=== PATIENT | female | born 1955 | race Caucasian/White ===

== ENCOUNTER 2017-02-08 10:54 | Inpatient (IN) ==
[2017-02-08] MEDS ORDERED: *HR* Morphine 2 MG/ML SYRINGE IVP ONE (11:28)
[2017-02-08 11:42] LABS: Basophils # 0.1 K/mcL (0.0-0.2); Basophils % 0.4 %; Eosinophils # 0.2 K/mcL (0.0-0.6); Hematocrit 45.1 % (35.3-44.9); Hemoglobin 14.8 g/dL (11.5-15.4); Immature Granulocytes % 0.3 % (0-4); Lymphocytes # 1.4 K/mcL (0.6-4.6); Lymphocytes % 9.4 %; Mean Corpuscular HGB Conc 32.8 g/dL (31.6-35.5); Mean Corpuscular Hemoglobin 29.9 pg (28.0-33.3); Mean Corpuscular Volume 91.1 fL (83.0-100.0); Mean Platelet Volume 10.8 fL (9.4-12.4); Monocytes # 0.5 K/mcL (0.0-1.3); Monocytes % 3.5 %; Neutrophils # 13.1 K/mcL (1.6-8.9); Platelet Count 235 K/mcL (140-400); Red Blood Count 4.95 M/mcL (3.82-4.97); Red Cell Distribution Width 13.1 % (11.5-14.5); Segmented Neutrophils % 85.4 %
--- NOTE | 2017-02-08 11:42 | Emergency Department Note ---
Disposition Clinical Impression: Hematuria Qualifiers: Hematuria type: unspecified type Qualified Code(s): R31.9 - Hematuria, unspecified Disposition: Admitted As Inpatient Condition: Fair Time of Disposition: 13:26 Female Urogenital HPI - General Chief complaint: ED Urogenital-Female Stated complaint: r flank pain , hematuria Time Seen by Provider: 02/08/17 10:58 Source: patient, EMS Limitations: no limitations Nursing Notes Reviewed: Yes Vital Signs Reviewed: Yes - History of Present Illness HPI Narrative: Ms. Higgins is a 61 y/o F with no significant past medical history who presents with right flank pain and hematuria. The patient states that the pain was a sudden onset that started at around 9 AM. Patient describes it as a constant pain with no radiation that felt like someone punched her on her right side. She never had this pain before. She states that nothing makes it worse but urinating improve the pain. Since the pain, she had 3 episodes of hematuria and admit feeling weak and diaphoretic. She also states she has lower abdominal pain that is intermittent, dull, and crampy that started in the ED. She states that it does not radiate and nothing makes it better or worse. SHe denies any fever, headaches, chest pain, shortness of breath, occupation, diarrhea, numbness and tingling, any recent trauma. - Related Data Home Medications Medication Instructions Recorded Confirmed No Known Home Drugs 02/08/17 02/08/17 Allergies Allergy/AdvReac Type Severity Reaction Status Date / Time Penicillins Allergy Intermediate Rash Verified 02/08/17 11:53 sulfacetamide Allergy Intermediate Rash Verified 02/08/17 11:53 [From Sulfamide] All systems ED: reviewed and negative except as stated. Review of Systems: As Per HPI Constitutional: Denies: fever Cardiovascular: Denies: chest pain Respiratory: Denies: dyspnea Genitourinary: Reports: hematuria Musculoskeletal: Reports: back pain Past Medical History - Past Medical History Attestation: Yes The following information was validated with the patient. Source: patient Medical history: Reports: no medical history Psychiatric history: Reports: no psych history Para: 4 - Social History Smoking Status: Never smoker Smokeless Tobacco Status: No Alcohol use: Reports: none Drug use: Reports: none Physical Exam - General Limitations: no limitations General appearance: alert, in no apparent distress - Head Head exam: atraumatic, normocephalic, normal inspection - Eye Eye exam: Present: normal appearance, EOMI - Expanded Eye Exam Pupils: Bilateral: reactive - ENT ENT exam: normal exam, normal oropharynx, mucous membranes moist - Chest Chest inspection: Present: normal inspection, symmetric chest wall rise - Respiratory Respiratory exam: Present: normal lung sounds bilaterally. Absent: respiratory distress, wheezes - Cardiovascular Cardiovascular exam: Present: regular rate, normal rhythm, normal heart sounds. Absent: rubs, gallop, clicks - Abdominal Exam Abdominal exam: Present: soft, tenderness (tenderness to palpation below the umbilicus). Absent: distention, guarding, rebound, rigidity, trauma Abdominal tenderness: Present: mild - Extremities Exam Extremities exam: Present: normal inspection, full ROM. Absent: tenderness, pedal edema - Expanded Upper Extremity Exam Shoulder exam: Present: normal inspection, full ROM Vascular exam: Normal: capillary refill, radial pulse - Expanded Lower Extremity Exam Neurovascular/Tendon exam: Absent: pulse deficit, motor deficit, sensory deficit , tendon deficit - Back Exam Back exam: Present: normal inspection, CVA tenderness (R). Absent: tenderness, CVA tenderness (L), paraspinal tenderness, vertebral tenderness - Neurological Exam Neurological exam: Present: alert, oriented X3 - Expanded Neurological Exam Patient oriented to: Present: person, place, time Coma Scale Eye Opening: Spontaneous Coma Scale Motor Response: Obeys Commands Coma Scale Verbal Response: Oriented Coma Scale Total: 15 - Psychiatric Psychiatric exam: Present: normal affect, normal mood - Skin Skin exam: Present: warm, dry, intact, normal color Course Course Narrative: Patient is so uncomfortable. Does not want any further pain medication. We will perform CT prior to her being sent to the floor. Urology to see on the floor and place Campbell at that time. - Consultations Consultation #1: D/W Dr Franklin. Agrees with admission. Will order CT urogram and he will place campbell on the floor. Time: 13:24 Consultation #2: Dr Tesfaye accepts and requests CT to be ordered in department. Time: 13:35 Vital Signs Temperature 97.1 F L 02/08/17 10:58 Pulse Rate 101 02/08/17 10:58 Respiratory Rate 20 02/08/17 10:58 Blood Pressure 148/90 02/08/17 10:58 O2 Sat by Pulse Oximetry 98 02/08/17 10:58 Temperature 97.1 F L 02/08/17 10:58 Pulse Rate 93 02/08/17 13:47 Respiratory Rate 14 02/08/17 14:41 Blood Pressure 114/70 02/08/17 14:41 O2 Sat by Pulse Oximetry 97 02/08/17 13:47 Oxygen Delivery Oxygen Delivery Room Air Urogenital-Female - MDM Narrative Medical decision making narrative: Patient presents with right flank pain and hematuria and no history of kidney stones. Labs and UA is pending. Patient is currently comfortable and morphine is given for pain at this time. 11:49 12:23- UA reviewed and showed evidence of large amount of blood - Medical Records Medical records reviewed: Yes I reviewed the patient's medical records. - Lab Data Result diagrams: 02/08/17 11:35 02/08/17 11:35 Lab Results 02/08/17 02/08/17 02/08/17 Range/Units 11:35 11:35 11:47 WBC 15.3 H (4.3-11.1) K/mcL RBC 4.95 (3.82-4.97) M/mcL Hgb 14.8 (11.5-15.4) g/dL Hct 45.1 H (35.3-44.9) % MCV 91.1 (83.0-100.0) fL MCH 29.9 (28.0-33.3) pg MCHC 32.8 (31.6-35.5) g/dL RDW 13.1 (11.5-14.5) % Plt Count 235 (140-400) K/mcL MPV 10.8 (9.4-12.4) fL Immature Gran % 0.3 (0-4) % Seg Neutrophils % 85.4 % Lymphocytes % 9.4 % Monocytes % 3.5 % Eosinophils % 1.0 % Basophils % 0.4 % Neutrophils # 13.1 H (1.6-8.9) K/mcL Lymphocytes # 1.4 (0.6-4.6) K/mcL Monocytes # 0.5 (0.0-1.3) K/mcL Eosinophils # 0.2 (0.0-0.6) K/mcL Basophils # 0.1 (0.0-0.2) K/mcL Sodium 142 (136-145) mEq/L Potassium 4.1 (3.5-4.5) mEq/L Chloride 107 (98-109) mEq/L Carbon Dioxide 24 (19-29) mEq/L BUN 18 (7-20) mg/dL Creatinine 0.92 (0.57-1.11) mg/dL Est GFR ( Amer) > 60 (> 60) Est GFR (Non-Af Amer) > 60 (> 60) BUN/Creatinine Ratio 20 (6-26) Glucose 156 H (70-99) mg/dL Calculated Osmolality 299 (280-300) Calcium 10.1 (8.6-10.8) mg/dL Ur Specimen Adequacy See below A Urine Color Red A (Yellow) Urine Clarity Cloudy A (Clear) Urine pH 7.0 (5.0-8.0) pH Units Ur Specific [place] > 1.030 H (1.010-1.025) Urine Protein >=1000 H (Neg-Trace) mg/dL Urine Glucose (UA) 100 H (Normal) mg/dL Urine Ketones Negative (Negative) mg/dL Urine Blood Large H (Negative) Urine Nitrite Negative (Negative) Urine Bilirubin Negative (Negative) Urine Urobilinogen Normal (Normal) mg/dL Ur Leukocyte Esterase Small H (Negative) Ur Culture Indicated? YES A (NO) - Radiology Data Radiology results reviewed: Yes I reviewed the patient's radiology results. Abdomen/Pelvis CT 02/08/17 11:27 IMPRESSION: 1. Extensive hematoma of the right renal collecting system and proximal right ureter, an underlying proximal urothelial lesion is highly suspected in this setting. Large probable hematoma in the urinary bladder, favored to represent collection of blood products excreted from the right kidney and right upper ureter though underlying urothelial lesion of the bladder cannot be excluded in this setting. Urological consultation is recommended. 2. Hepatic steatosis. 3. Fatty deposition in the gastric antrum, duodenum, and ascending colon as described, while nonspecific, this finding can be seen in the setting of prior inflammation. 4. Colonic diverticulosis. D/ / 02/08/2017 13:03:46 Eben Zuniga MD / blanca Interpreting Provider: Eben Zuniga MD - EKG Data EKG attestation: Yes I reviewed and interpreted this EKG. EKG results narrative: Normal sinus at 184. No old for comparison. No ST segment changes or T-wave inversions. EKG shows normal: sinus rhythm, axis, intervals, QRS complexes, ST-T waves Attestation Statement - Attestation Attestation: I examined this patient and my medical decision-making was reviewed with the Resident Physician. I agree with the documented findings, disposition and treatment plan as described except to the extent set forth below. Patient 78 with hematuria and right flank pain sudden onset this morning. Exam shows her comfortable but with reproducible right CVA tenderness with percussion. Plan. Labs UA and CT scan. Pain control.
[2017-02-08 11:55] LABS: BUN/Creatinine Ratio 20 (6-26); Blood Urea Nitrogen 18 mg/dL (7-20); Calcium 10.1 mg/dL (8.6-10.8); Carbon Dioxide 24 mEq/L (19-29); Chloride 107 mEq/L (98-109); Glucose 156 mg/dL (70-99); Osmolality,Calculated 299 (280-300); Potassium 4.1 mEq/L (3.5-4.5); Sodium 142 mEq/L (136-145); eGFR For African Americans > 60 (> 60); eGFR For Non-African Americans > 60 (> 60)
[2017-02-08 12:01] LABS: Bilirubin,Urine Negative (Negative); Blood,Urine Large (Negative); Clarity,Urine Cloudy (Clear); Color,Urine Red (Yellow); Glucose,Urine (UA) 100 mg/dL (Normal); Ketones,Urine Negative (Negative); Leukocyte Esterase,Urine Small (Negative); Nitrite,Urine Negative (Negative); Protein,Urine >=1000 mg/dL (Neg-Trace); Specific Gravity,Urine > 1.030 (1.010-1.025); Urobilinogen,Urine Normal (Normal)
[2017-02-08] MEDS ORDERED: *HR* FentaNYL (PF) 100 MCG/2 ML VIAL IVP ONE (13:21)
[2017-02-08] MEDS ORDERED: Ondansetron 4 MG/2 ML VIAL IVP ONE (13:21)
[2017-02-08] MEDS ORDERED: *HR* Promethazine 25 MG/ML VIAL IVP PRN (16:21)
[2017-02-08] MEDS ORDERED: Ondansetron 4 MG/2 ML VIAL IVP PRN (16:21)
[2017-02-08] MEDS ORDERED: Naloxone 0.4 MG/ML INJ IVP PRN (16:21)
--- NOTE | 2017-02-08 16:32 | Internal Med History&Physical ---
Date of Encounter: 02/08/17 Time of Encounter: 16:30 Assessment and Plan (1) Hematuria Current visit: Yes Status: Acute Etiology appears to originate in right kidney, unclear if mass or vascular abnormality. Urology consulted in ED. - Given patient's tachycardia and lightheadedness with standing will check STAT hemoglobin and follow Q8H - Type and screen - Appreciate assistance of urology - Keep patient NPO until urology evaluation - IV fluids Qualifiers: Hematuria type: gross Qualified Code(s): R31.0 - Gross hematuria Internal Medicine - H&P: HPI Chief complaint: Hematuria, right flank pain Admitted From: Emergency Dept Plans for Post Hospital Care: Home History of present illness: Ms. Higgins is a 61 year old female without significant past medical history who presented to the ED this morning with complaint of right sided flank pain which developed suddenly this morning. The pain was severe, and she then had three episodes of katrina hematuria. She had a syncopal episode while sitting, was diaphoretic and vomited at the time. She presented to the ED for evaluation and CT abdomen/pelvis was performed which showed hemorrhage in the right renal collecting system. Urology was consulted and recommended admission for further workup and evaluation. Patient complains of continued nausea, but notes that her flank pain has resolved as well and the suprapuic discomfort she was feeling earlier. She endorses feeling lightheaded if she stands up. Past Med Surg Social Fam HX - Past Medical History Medical history: no medical history Psychiatric history: no psych history - Past Surgical History Surgical History: no surgical history - Social History Smoking Status: Never smoker Smokeless Tobacco Status: No Alcohol use: none Drug use: none - Family History Father Hx Family Cardiac Disorders: Yes Internal Medicine - H&P: Meds No Known Home Drugs 02/08/17 [History] 3 Allergy/AdvReac Type Severity Reaction Status Date / Time Penicillins Allergy Intermediate Rash Verified 02/08/17 11:53 sulfacetamide Allergy Intermediate Rash Verified 02/08/17 11:53 [From Sulfamide] All Systems PM: A 10-system review of systems was performed and is negative for pertinent findings except as documented above in the HPI. - Constitutional Constitutional: no fever(s), no falls - Cardiovascular Cardiovascular ROS IM: diaphoresis, no chest pain, no dyspnea - Respiratory Respiratory: no cough, no dyspnea - Gastrointestinal Gastrointestinal: nausea, vomiting, no diarrhea - Genitourinary Genitourinary: hematuria - Constitutional Vitals: Temp Pulse Resp BP Pulse Ox 97.6 F 101 17 147/91 98 02/08/17 15:15 02/08/17 15:15 02/08/17 15:15 02/08/17 15:15 02/08/17 15:15 General appearance: Present: A&O X 3, pleasant, no acute distress - Head Head exam: Present: atraumatic - Eye Eye exam: Present: EOMI, sclera anicteric - ENT ENT exam: Present: mucous membranes moist - Neck Neck exam general surgery: Present: supple - Respiratory Respiratory exam: Present: CTAB - Cardiovascular Cardiovascular exam: Present: tachycardia. Absent: gallop, rubs, systolic murmur - GI/Abdominal GI/Abdominal exam: Present: normal bowel sounds, soft. Absent: distended, tenderness - Extremities Exam Extremities exam: Absent: pedal edema - Neurological Exam Neurological exam: Present: no focal deficits - Skin Skin exam: Absent: rash Internal Med - H&P Results - Labs CBC & Chem 7: 02/08/17 11:35 02/08/17 11:35
[2017-02-08] MEDS ORDERED: Lidocaine Jelly 11 ml Syringe TP STA (17:32)
[2017-02-08] MEDS: 0.9 % Sodium Chloride 1,000 ML IVC SCH (18:04)
[2017-02-09] MEDS: 0.9 % Sodium Chloride 1,000 ML IVC SCH ×2 (02:45→09:47)
[2017-02-09 05:13] LABS: Basophils % 0.2 %; Eosinophils % 0.3 %; Hematocrit 35.3 % (35.3-44.9); Immature Granulocytes % 0.2 % (0-4); Lymphocytes # 1.7 K/mcL (0.6-4.6); Lymphocytes % 17.2 %; Mean Corpuscular HGB Conc 32.3 g/dL (31.6-35.5); Mean Corpuscular Hemoglobin 29.6 pg (28.0-33.3); Mean Corpuscular Volume 91.7 fL (83.0-100.0); Monocytes # 0.9 K/mcL (0.0-1.3); Monocytes % 9.1 %; Neutrophils # 7.3 K/mcL (1.6-8.9); Platelet Count 207 K/mcL (140-400); Red Blood Count 3.85 M/mcL (3.82-4.97); Red Cell Distribution Width 13.7 % (11.5-14.5)
[2017-02-09 05:14] LABS: Hemoglobin 11.4 g/dL (11.5-15.4)
[2017-02-09] MEDS ORDERED: *HR* Morphine 2 MG/ML SYRINGE IVP ONE (05:16)
[2017-02-09 05:28] LABS: BUN/Creatinine Ratio 15 (6-26); Blood Urea Nitrogen 14 mg/dL (7-20); Calcium 8.6 mg/dL (8.6-10.8); Carbon Dioxide 24 mEq/L (19-29); Chloride 108 mEq/L (98-109); Glucose 92 mg/dL (70-99); Osmolality,Calculated 288 (280-300); Potassium 3.9 mEq/L (3.5-4.5); Sodium 139 mEq/L (136-145); eGFR For African Americans > 60 (> 60); eGFR For Non-African Americans > 60 (> 60)
--- NOTE | 2017-02-09 05:58 | Urology - Consult Note ---
Date of Encounter: 02/08/17 Time of Encounter: 18:00 - Assessment and Plan (1) Gross hematuria Current Visit: Yes Status: Acute Assessment and plan: see procedure note. I placed hematuria cath and irrigated clot from bladder. will recheck in AM. If urine is clearing will likely remove the campbell cath. Based on CT images I strongly suspect bleeding originated from the right collecting system. I reviewed the contrast CT images. There are multiple filling defects in the right renal pelvis but I do not see a discrete tumor (renal or urothelial). urothelial malignancy needs to remain high on the differential but other nonmalignant causes are possible - AVM, vascular anomalies, subacute trauma. She will eventually need a diagnostic ureteroscopy. will likely perform as an outpt bc visiblity will be limited now with all the clots in her kidney. If the renal bleeding continues will proceed with ureteroscopy and stent (which can tamponade the bleeding). If still persistant would need to consult IR for embolization. I will follow her to make this decision. Urology CN:HPI Consult date: 02/08/17 Reason for consult Urology: Gross Hematuria History of present illness: pt presented to the ER for GH and right flank pain. no similar issues. ct scan without contrast shows hydro and clots in right collecting system. large clot in the bladder. pt reports no trauma, no smoking hx, no bleeding disorders , no UTIs Past Med Surg Social Fam HX - Past Medical History Medical history: no medical history Psychiatric history: no psych history - Past Surgical History Surgical History: no surgical history - Social History Smoking Status: Never smoker Smokeless Tobacco Status: No Alcohol use: none Drug use: none - Family History Father Hx Family Cardiac Disorders: Yes Medications and Allergies No Known Home Drugs 02/08/17 [History] 3 Allergy/AdvReac Type Severity Reaction Status Date / Time Penicillins Allergy Intermediate Rash Verified 02/08/17 11:53 sulfacetamide Allergy Intermediate Rash Verified 02/08/17 11:53 [From Sulfamide] Review of Systems - Constitutional no chills, no fever(s) - EENT Nose, mouth and throat: no dizziness - Cardiovascular no chest pain - Respiratory no cough - Gastrointestinal abdominal pain, nausea - Genitourinary Genitourinary: flank pain, hematuria - Musculoskeletal back pain - Integumentary no erythema - Neurological no confusion - Psychiatric no anxiety - Hematologic/Lymphatic no easy bleeding - Allergic/Immunologic no throat swelling Exam Initial Vital Signs Temp Pulse Resp BP Pulse Ox 97.1 F L 101 20 148/90 98 02/08/17 10:58 02/08/17 10:58 02/08/17 10:58 02/08/17 10:58 02/08/17 10:58 - General physical appearance Present: well developed, no distress - Eyes Present: PERRL - ENT Present: normal nares - Neck Present: no masses - Respiratory Present: normal respiratory effort - Cardiovascular Cardiovascular exam IM: RRR - Abdomen Abdomen: Present: soft - Genitourinary Present: normal external genitalia - Integumentary Present: no rash - Neurologic Present: normal coordination. Absent: disoriented, confused Urology Results - Labs 02/09/17 04:27 02/09/17 04:27 Abnormal lab results Hgb 11.4 g/dL (11.5-15.4) L D 02/09/17 04:27 Ur Specimen Adequacy See below A 02/08/17 11:47 Urine Color Red (Yellow) A 02/08/17 11:47 Urine Clarity Cloudy (Clear) A 02/08/17 11:47 Ur Specific [place] > 1.030 (1.010-1.025) H 02/08/17 11:47 Urine Protein >=1000 mg/dL (Neg-Trace) H 02/08/17 11:47 Urine Glucose (UA) 100 mg/dL (Normal) H 02/08/17 11:47 Urine Blood Large (Negative) H 02/08/17 11:47 Ur Leukocyte Esterase Small (Negative) H 02/08/17 11:47 Ur Culture Indicated? YES (NO) A 02/08/17 11:47 Diabetes panel 02/09/17 Range/Units 04:27 Sodium 139 (136-145) mEq/L Potassium 3.9 (3.5-4.5) mEq/L Chloride 108 (98-109) mEq/L Carbon Dioxide 24 (19-29) mEq/L BUN 14 (7-20) mg/dL Creatinine 0.92 (0.57-1.11) mg/dL Glucose 92 (70-99) mg/dL Calcium 8.6 (8.6-10.8) mg/dL Calcium panel 02/09/17 Range/Units 04:27 Calcium 8.6 (8.6-10.8) mg/dL Pituitary panel 02/09/17 Range/Units 04:27 Sodium 139 (136-145) mEq/L Potassium 3.9 (3.5-4.5) mEq/L Chloride 108 (98-109) mEq/L Carbon Dioxide 24 (19-29) mEq/L BUN 14 (7-20) mg/dL Creatinine 0.92 (0.57-1.11) mg/dL Glucose 92 (70-99) mg/dL Calcium 8.6 (8.6-10.8) mg/dL Adrenal panel 02/09/17 Range/Units 04:27 Sodium 139 (136-145) mEq/L Potassium 3.9 (3.5-4.5) mEq/L Chloride 108 (98-109) mEq/L Carbon Dioxide 24 (19-29) mEq/L BUN 14 (7-20) mg/dL Creatinine 0.92 (0.57-1.11) mg/dL Glucose 92 (70-99) mg/dL Calcium 8.6 (8.6-10.8) mg/dL All other labs normal. Procedures:Urology - Bladder Irrigation/Clot Evacuation Consent obtained: verbal consent Irrigation: other (sterile water) Patient tolerated procedure: well Continuous Bladder Irrigation: No Complications: none Additional comments: first attempted 24 [place] hematuria cath but would not pass. dilated urethra with 18 [place] simon after urojet placed [address] and able to irrigate significant clot with 60 cc cath tip syringe. irrigated fairly clear. no CBI started. Consult Discharge Plan - Plan Referrals: Khadar Byrnes DO [Primary Care Provider] -
[2017-02-09] MEDS ORDERED: *HR* HYDROmorphone (PF) 1 MG/ML SYRINGE IVP ONE (06:42)
[2017-02-09] MEDS ORDERED: Hyoscyamine SL 0.125 MG TAB.SUBL SL PRN (09:04)
[2017-02-09] MEDS ORDERED: *HR* Belladonna Alkaloids/Opium 30 MG RECTAL SUPPOSITORY RC PRN (09:04)
--- NOTE | 2017-02-09 09:06 | Urology Progress Note ---
Date of Encounter: 02/09/17 Time of Encounter: 09:04 - Assessment and Plan (1) Gross hematuria Current Visit: Yes Status: Acute Assessment and plan: the clot irrigated this AM appears old and from yesterday. the flank pain may be from existing clots moving down the ureter. we did discuss the possibility she has new bleeding from the kidney. I do not recommend new imaging as she is hemodynamically stable. will follow today. if continued flank pain throughout the day will likely plan for OR tomorrow AM to place ureteral stent which can facilitate drainage of urine from kidney and tamponade any bleeding. Progress Note Subjective: still having pain Narrative: right flank pain again overnight at 430. increase bladder pressure this AM. Objective Initial Vital Signs Temp Pulse Resp BP Pulse Ox 97.1 F L 101 20 148/90 98 02/08/17 10:58 02/08/17 10:58 02/08/17 10:58 02/08/17 10:58 02/08/17 10:58 - General physical appearance Present: no distress, moderate pain - Abdomen Present: soft - Additional Exam able to irrigate an additional 60 cc black clot - Labs 02/09/17 04:27 02/09/17 04:27 Diabetes panel 02/09/17 Range/Units 04:27 Sodium 139 (136-145) mEq/L Potassium 3.9 (3.5-4.5) mEq/L Chloride 108 (98-109) mEq/L Carbon Dioxide 24 (19-29) mEq/L BUN 14 (7-20) mg/dL Creatinine 0.92 (0.57-1.11) mg/dL Glucose 92 (70-99) mg/dL Calcium 8.6 (8.6-10.8) mg/dL Calcium panel 02/09/17 Range/Units 04:27 Calcium 8.6 (8.6-10.8) mg/dL Pituitary panel 02/09/17 Range/Units 04:27 Sodium 139 (136-145) mEq/L Potassium 3.9 (3.5-4.5) mEq/L Chloride 108 (98-109) mEq/L Carbon Dioxide 24 (19-29) mEq/L BUN 14 (7-20) mg/dL Creatinine 0.92 (0.57-1.11) mg/dL Glucose 92 (70-99) mg/dL Calcium 8.6 (8.6-10.8) mg/dL Adrenal panel 02/09/17 Range/Units 04:27 Sodium 139 (136-145) mEq/L Potassium 3.9 (3.5-4.5) mEq/L Chloride 108 (98-109) mEq/L Carbon Dioxide 24 (19-29) mEq/L BUN 14 (7-20) mg/dL Creatinine 0.92 (0.57-1.11) mg/dL Glucose 92 (70-99) mg/dL Calcium 8.6 (8.6-10.8) mg/dL Consult Discharge Plan - Plan Referrals: Khadar Byrnes DO [Primary Care Provider] -
--- NOTE | 2017-02-09 13:32 | Internal Med Progress Note ---
<Hipolito Meneses - Last Filed: 02/09/17 13:29> Date of Encounter: 02/09/17 Time of Encounter: 13:29 - Assessment and plan (1) Gross hematuria Current Visit: Yes Status: Acute Assessment and plan: Ct abdomen/pelvis shows right kidney abnormalaty unclear if malignancy or other reason. urology will perform diagnostic ureteroscopy as outpatient after hematuria resolves or if hematuria continues may proceed with ureteroscopy and stent. currently clear yellow urine in campbell catheter monitor h/h patient tacycardic (2) DVT prophylaxis Current Visit: Yes Status: Acute Assessment and plan: epcd - Subjective Interval history: reports improved right flank pain, mild nausea controlled with medications. Able to tolerate clear liquid diet. Denies CP, abdominal pain, sob. - Constitutional Vitals: Temp Pulse Resp BP Pulse Ox 97.5 F L 93 15 161/75 93 02/09/17 12:04 02/09/17 12:04 02/09/17 12:04 02/09/17 12:04 02/09/17 12:04 General appearance: Present: A&O X 3, pleasant, no acute distress - Respiratory Respiratory exam: Present: CTAB. Absent: accessory muscle use, rales, rhonchi, wheezes - Cardiovascular Cardiovascular exam: Present: +S1, +S2, tachycardia - GI/Abdominal GI/Abdominal exam: Present: normal bowel sounds, soft, no peritoneal signs. Absent: distended, tenderness - Additional comments: Clear yellow urine in Campbell catheter - Extremities Exam Extremities exam: Present: warm, radial pulses palpable and symmetrical. Absent : calf tenderness, cyanotic, pedal edema Internal Medicine: Result - Labs CBC & Chem 7: 02/09/17 04:27 02/09/17 04:27 - VTE Reasons for not Prescribing Prophylaxis: Medical contraindication Consult Discharge Plan - Plan Referrals: Khadar Byrnes DO [Primary Care Provider] - <[place] - Last Filed: 02/09/17 16:28> Date of Encounter: 02/09/17 - Assessment and plan (1) Anemia Current Visit: Yes Status: Acute Qualifiers: Anemia type: other cause Other causes of anemia: acute posthemorrhagic Qualified Code(s): D62 - Acute posthemorrhagic anemia (2) Gross hematuria Current Visit: Yes Status: Acute - Constitutional Vitals: Temp Pulse Resp BP Pulse Ox 97.5 F L 93 15 161/75 93 02/09/17 12:04 02/09/17 12:04 02/09/17 12:04 02/09/17 12:04 02/09/17 12:04 Internal Medicine: Result - Labs CBC & Chem 7: 02/09/17 04:27 02/09/17 04:27 - Attending Attestation I examined this patient and my medical decision-making was reviewed with the Resident Physician on 02/09/17. I agree with the documented findings, disposition and treatment plan as described except to the extent set forth below. Ms. Higgins is currently admitted for gross hematuria. She remains moderate to high risk due to potential for hemodynamic instability from bleeding. Ms Higgins is doing better after B&O suppository. Less blood in campbell. No fever or chills. No GI issues. Exam Alert. Comfortable now\ Mucus membranes dry Heart reg no murmur Lungs clear Abd soft No edema I/P 1. Hematuria 2. Anemia acute blood loss Further diagnoses and plan as above.
[2017-02-09 16:15] LABS: Hematocrit 32.7 % (35.3-44.9); Hemoglobin 10.6 g/dL (11.5-15.4)
[2017-02-10] MEDS: 0.9 % Sodium Chloride 1,000 ML IVC SCH (02:41)
[2017-02-10 04:32] LABS: Basophils % 0.4 %; Eosinophils # 0.1 K/mcL (0.0-0.6); Eosinophils % 0.9 %; Hematocrit 29.4 % (35.3-44.9); Hemoglobin 9.4 g/dL (11.5-15.4); Immature Granulocytes % 0.3 % (0-4); Lymphocytes # 1.5 K/mcL (0.6-4.6); Lymphocytes % 19.8 %; Mean Corpuscular Hemoglobin 29.6 pg (28.0-33.3); Mean Corpuscular Volume 92.5 fL (83.0-100.0); Mean Platelet Volume 10.9 fL (9.4-12.4); Monocytes # 0.7 K/mcL (0.0-1.3); Monocytes % 9.1 %; Neutrophils # 5.3 K/mcL (1.6-8.9); Platelet Count 161 K/mcL (140-400); Red Blood Count 3.18 M/mcL (3.82-4.97); Red Cell Distribution Width 13.6 % (11.5-14.5); Segmented Neutrophils % 69.5 %
[2017-02-10 04:48] LABS: BUN/Creatinine Ratio 15 (6-26); Blood Urea Nitrogen 12 mg/dL (7-20); Calcium 8.1 mg/dL (8.6-10.8); Carbon Dioxide 25 mEq/L (19-29); Chloride 111 mEq/L (98-109); Glucose 92 mg/dL (70-99); Osmolality,Calculated 291 (280-300); Sodium 141 mEq/L (136-145); eGFR For African Americans > 60 (> 60); eGFR For Non-African Americans > 60 (> 60)
[2017-02-10 04:49] LABS: Potassium 3.8 mEq/L (3.5-4.5)
[2017-02-10 06:04] VITALS: BP 135/83
--- NOTE | 2017-02-10 08:06 | Discharge Summary ---
Date of Encounter: 02/10/17 Time of Encounter: 08:03 - Discharge Diagnosis (1) Gross hematuria Priority: Primary Status: Resolved - Discharge Medications Prescriptions: HYDROcodone/Acet 5/325 mg [[place] 5-325 mg] 1 tab PO Q4H PRN #5 tab PRN Reason: Pain Home Medications: HYDROcodone/Acet 5/325 mg [[place] 5-325 mg] 1 tab PO Q4H PRN #5 tab 02/10/17 [Rx] Allergies/Adverse Reactions: 3 Allergy/AdvReac Type Severity Reaction Status Date / Time Penicillins Allergy Intermediate Rash Verified 02/08/17 11:53 sulfacetamide Allergy Intermediate Rash Verified 02/08/17 11:53 [From Sulfamide] Labs on day of discharge: Labs from last 24 hours 02/10/17 02/10/17 02/09/17 03:58 03:58 16:07 WBC 7.6 RBC 3.18 L Hgb 9.4 L 10.6 L Hct 29.4 L 32.7 L MCV 92.5 MCH 29.6 MCHC 32.0 RDW 13.6 Plt Count 161 MPV 10.9 Immature Gran % 0.3 Seg Neutrophils % 69.5 Lymphocytes % 19.8 Monocytes % 9.1 Eosinophils % 0.9 Basophils % 0.4 Neutrophils # 5.3 Lymphocytes # 1.5 Monocytes # 0.7 Eosinophils # 0.1 Basophils # 0.0 Sodium 141 Potassium 3.8 Chloride 111 H Carbon Dioxide 25 BUN 12 Creatinine 0.79 Est GFR ( Amer) > 60 Est GFR (Non-Af Amer) > 60 BUN/Creatinine Ratio 15 Glucose 92 Calculated Osmolality 291 Calcium 8.1 L Date of admission: 02/09/17 12:56 Primary care physician: Khadar Byrnes, Discharging clinician: Farshad Franklin Anticipated date of discharge: 02/10/17 - Patient Status Disposition: Home, Self-Care Condition: Good Functional capacity at discharge: independent ambulation Overall status at discharge: patient is progressing back to baseline - Discharge Instructions Follow Up With: Khadar Byrnes DO [Primary Care Provider] - Farshad Franklin MD [Partnered Physician] - (my office will call pt to schedule diagnostic ureteroscopy) Additional Instructions: expect some occasional passage of blood and debris. call if excessive call if fever over 101 call if severe flank pain avoid any NSAIDS. - Diet and Activity Activity: increase activity as tolerated Diet: advance to your usual diet - Hospital Course Hospital course: Ms. Higgins is a 61 year old female admitted with clot retention and likely bleeding from the right renal pelvis. unknown cause. cath palced and all clots irrigated from bladder. HGB has drfted down to 9.5 but vitals stable. pt feels good. - Time Spent with Patient Total time spent providing and/or coordinating discharge services: Exam Initial Vital Signs Temp Pulse Resp BP Pulse Ox 97.1 F L 101 20 148/90 98 02/08/17 10:58 02/08/17 10:58 02/08/17 10:58 02/08/17 10:58 02/08/17 10:58 - General physical appearance Present: well developed, no distress - Additional Findings urine clear - VTE Reasons for not Prescribing Prophylaxis: Medical contraindication
--- NOTE | 2017-02-10 17:46 | Electrocardiograph Report ---
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
== END 2017-02-10 10:45 | disposition home or self-care (01) | DRG 699 ==
LOC: EMEROO 10:54 → 2NENU 10:54
PROVIDERS: ADMIT Internal Medicine; ATTEND Internal Medicine